=== PATIENT | female | born 1965 | race Two or more races ===

== ENCOUNTER 2022-01-07 08:44 | Emergency (ER) | payer SELFPAY ==
[~2022-01-07] VITALS: Ht 152.4 cm; Wt 58.3 kg
--- NOTE | 2022-01-07 08:46 | NUR ---
BIBS W/ C/O RIGHT HIP PAIN RADIATING TO RIGHT UPPER BACK X10 DAYS. RATES PAIN 10/10 ON PS. PT DENIES TRAUMA. TO ER BED 1.
--- NOTE | 2022-01-07 09:19 | NUR ---
URINE COLLECTED AND SENT TO THE LAB
[2022-01-07] MEDS ORDERED: ACETAMINOPHEN ES 500 MG TABLET ONE (09:21)
[2022-01-07] MEDS ORDERED: IV NS 0.9% 1,000 ML BAG IV ONE (09:30)
[2022-01-07] MEDS ORDERED: ACETAMINOPHEN ES 500 MG TABLET PO ONE (09:30)
--- NOTE | 2022-01-07 09:30 | NUR ---
IV ESTABLISHED, BLOOD SPECIMEN COLLECTED AND SENT TO THE LAB. THE LINE IS SALINE LOCKED.
--- NOTE | 2022-01-07 09:30 | NUR ---
US TECH AT THE BEDSIDE
[2022-01-07 09:36] LABS: BASOPHILS % (AUTO) 0.6 % (0.0-2.0); HEMATOCRIT 42 % (33-45); HEMOGLOBIN 13.9 g/dL (11.5-14.8); LYMPHOCYTES # (AUTO) 1.3 K/uL (0.8-4.8); LYMPHOCYTES % (AUTO) 26.2 % (20.0-44.0); MEAN CORPUSCULAR HGB CONC 33 g/dl (31.0-36.0); MEAN CORPUSCULAR VOLUME 87 fL (82-100); MONOCYTES # (AUTO) 0.4 K/uL (0.1-1.30); MONOCYTES % (AUTO) 7.4 % (2.0-12.0); NEUTROPHILS # (AUTO) 3.1 K/uL (1.8-8.9); NEUTROPHILS % (AUTO) 62.8 % (43.0-81.0); PLATELET COUNT (AUTO) 258 K/uL (150-450); RED BLOOD CELL COUNT(AUTO) 4.78 MIL/uL (4.0-5.2)
--- NOTE | 2022-01-07 09:46 | NUR ---
THE PATIENT IS TAKEN TO CT [facility]IA [facility]
[2022-01-07 09:48] LABS: CALCIUM, SERUM 9.1 mg/dL (8.5-10.1); CREATININE 0.8 mg/dL (0.6-1.3); POTASSIUM 3.7 mmol/L (3.5-5.1)
--- NOTE | 2022-01-07 09:52 | NUR ---
THE PATIENT IS BACK FROM CT VIA [facility]
[2022-01-07 09:53] LABS: ALBUMIN 3.9 g/dL (3.4-5.0); BILIRUBIN,DIRECT 0.1 mg/dL (0.0-0.2); BILIRUBIN,TOTAL 0.4 mg/dL (0.2-1.0); TOTAL PROTEIN, SERUM 7.4 g/dL (6.4-8.2)
[2022-01-07 09:54] LABS: BILIRUBIN,URINE NEGATIVE (NEGATIVE); COLOR,URINE YELLOW (YELLOW); LEUKOCYTE ESTERASE ,URINE NEGATIVE (NEGATIVE); NITRITE, URINE NEGATIVE (NEGATIVE); PROTEIN,URINE NEGATIVE (NEGATIVE); UGLUCOSE NEGATIVE (NEGATIVE); UROBILINOGEN,URINE 0.2 EU/dL (0.2)
[2022-01-07 10:20] LABS: BACTERIA,URINE Rare /HPF (None Seen); SQUAMOUS EPITHELIAL CELL,UR Few /HPF (None Seen); WBC,URINE 0-2 /HPF (0-3)
[2022-01-07] MEDS ORDERED: CYCL5TAB PO (10:41)
[2022-01-07] MEDS ORDERED: IBUP-1955 PO (10:41)
[2022-01-07] MEDS ORDERED: PRED20TA PO (10:41)
--- NOTE | 2022-01-07 11:20 | NUR ---
IV removed. Catheter intact and site benign. Pressure and 4x4 applied to site. No bleeding noted.Patient discharged to home in stable condition. Written and verbal after care instructions given. Patient verbalizes understanding of instruction.
[2022-01-07 11:29] VITALS: BP 141/72
== END 2022-01-07 11:29 | disposition home or self-care (01) ==
LOC: ER 08:47
DX: M54.42 Lumbago with sciatica, left side (principal); M54.41 Lumbago with sciatica, right side; K80.20 Calculus of gallbladder without cholecystitis without obstruction; K57.30 Diverticulosis of large intestine without perforation or abscess without bleeding; I10 Essential (primary) hypertension
CPT/HCPCS: 99284; 74176; 96360; 76705; 85025; 80048; 83690; 80076; 81001; 36415; J7030